=== PATIENT | male | born 1990 | race Caucasian/White ===

== ENCOUNTER 2019-06-28 08:58 | Emergency (ER) | payer OTHER ==
[~2019-06-28] VITALS: Ht 172.7 cm; Wt 104.3 kg
[2019-06-28 09:07] VITALS: BP 126/84
== END 2019-06-28 10:25 | disposition left against medical advice (07) ==
LOC: ER 08:58
DX: M54.5 Low back pain (principal); Z53.21 Procedure and treatment not carried out due to patient leaving prior to being seen by health care provider; V49.49XA Driver injured in collision with other motor vehicles in traffic accident, initial encounter; Y93.89 Activity, other specified; Y92.488 Other paved roadways as the place of occurrence of the external cause; Y99.8 Other external cause status
CPT/HCPCS: 72100

== ENCOUNTER 2019-06-28 13:26 | Emergency (ER) | payer OTHER ==
[~2019-06-28] VITALS: Ht 172.7 cm; Wt 104.3 kg
[2019-06-28] MEDS ORDERED: HYDROcodone-ACET 7.5/325MG TAB PO ONE (14:30)
[2019-06-28] MEDS ORDERED: HYDROcodone-ACET 5/325MG TAB PO ONE (20:00)
[2019-06-29 00:47] VITALS: BP 119/58
[2019-06-29] MEDS ORDERED: HYDROcodone-ACET 5/325MG TAB PO ONE ×2 (01:00)
== END 2019-06-28 23:32 | disposition short-term general hospital (02) ==
LOC: ER 13:44
DX: S22.089A Unspecified fracture of T11-T12 vertebra, initial encounter for closed fracture (principal); V89.2XXA Person injured in unspecified motor-vehicle accident, traffic, initial encounter; Y93.I9 Activity, other involving external motion; Y92.410 Unspecified street and highway as the place of occurrence of the external cause; Y99.8 Other external cause status
CPT/HCPCS: 72128; 72131